=== PATIENT | female | born 1965 | race Caucasian/White ===

== ENCOUNTER 2021-11-17 14:04 | Inpatient (IN) | payer OTHER, MEDICAID ==
[~2021-11-17] VITALS: Ht 172.7 cm; Wt 86.2 kg
--- NOTE | 2021-11-17 21:45 | NUR ---
Direct admit Received report from JAKE Matos and prior, had received telephone report from SARAH Vargas at [place]. Patient is awake, no distress, on 2L NC and has chest tube to left side of chest. She was oriented to call light. Bed is locked in lowest position, bed alarm on.
[2021-11-17 21:55] VITALS: BP_SYST 104
--- NOTE | 2021-11-17 23:32 | NUR ---
PAGED PAGED DOCTOR BUCKNER FOR ORDERS
[2021-11-17] MEDS ORDERED: ACET325T53 PO (23:49)
[2021-11-17] MEDS ORDERED: DOCU-156 PO (23:49)
[2021-11-17] MEDS ORDERED: OLAN10TA3 PO (23:49)
[2021-11-17] MEDS ORDERED: ALBU0.63 IH (23:49)
[2021-11-17] MEDS ORDERED: NITSL SL (23:49)
[2021-11-17] MEDS ORDERED: METO25TA6 PO (23:49)
[2021-11-17] MEDS ORDERED: [UNRECOGNIZED DRUG - CODE] PO (23:49)
[2021-11-17] MEDS ORDERED: ANAS1TAB51 PO (23:49)
[2021-11-17] MEDS ORDERED: ONDA2VIA4 IV (23:49)
[2021-11-17] MEDS ORDERED: LOVI40 SQ (23:49)
[2021-11-17] MEDS ORDERED: [UNRECOGNIZED DRUG - CODE] PO (23:49)
[2021-11-17] MEDS ORDERED: LORA10TA68 PO (23:59)
--- NOTE | 2021-11-18 00:12 | NUR ---
Dr. Suzie Herrera Received direct admit orders
[2021-11-18 01:42] VITALS: BP_SYST 131
--- NOTE | 2021-11-18 02:19 | NUR ---
Rapid Covid swab / MRSA nares test done and will send to lab. Earlier MRSA nares sample was collected and sent to lab
[2021-11-18 02:21] LABS: ALBUMIN 2.6 g/dL (3.4-4.8); CALCIUM 9.1 mg/dL (8.4-11.0); CREATININE 0.45 mg/dL (0.55-1.30); POTASSIUM 3.9 mmol/L (3.5-5.1); TOTAL BILIRUBIN 0.3 mg/dL (0.0-1.0)
--- NOTE | 2021-11-18 02:54 | NUR ---
CONSULTATION PAGED REASON FOR CONSULTATION: HYDROPNEUMOTHORAX WAS CONSULT CALLED? Y PERSON WHO WAS NOTIFIED: Jakub CONSULTING PHYSICIAN: Dr. Davey REQUESTING PHYSICIAN: Dr. Herrera
--- NOTE | 2021-11-18 03:01 | NUR ---
PAGE PAGED VLAD WHO IS DAIRY FARM OPERATOR DR ANDERSON IS DAIRY FARM OPERATOR
[2021-11-18] MEDS ORDERED: ACETAMINOPHEN 325 MG TABLET PO PRN (03:15)
[2021-11-18] MEDS ORDERED: ONDANSETRON HCL 4 MG/2 ML VIAL IVP PRN (03:15)
[2021-11-18] MEDS ORDERED: LORATADINE 10 MG TABLET PO PRN (03:15)
[2021-11-18] MEDS ORDERED: NITROGLYCERIN 0.4 MG TAB.SUBL SL PRN (03:15)
--- NOTE | 2021-11-18 03:19 | NUR ---
CONSULTATION PAGED REASON FOR CONSULTATION: HYDROPNEUMOTHORAX WAS CONSULT CALLED? Y PERSON WHO WAS NOTIFIED: Iwona CONSULTING PHYSICIAN: Berhane Contreras REQUESTING PHYSICIAN: Dr. Herrera
--- NOTE | 2021-11-18 03:49 | NUR ---
Second Paged for Dr. Colorado s/jennifer Navarrete
--- NOTE | 2021-11-18 03:53 | NUR ---
Dr. Colorado, chest tube-water seal s/w Dr. Colorado and he said keep patient on water seal.
[2021-11-18] MEDS ORDERED: LACTOSE REDUCED FOOD PO SCH (08:00)
--- NOTE | 2021-11-18 08:00 | NUR ---
NOTES PATIENT AAOX 4. VITALS SIGNS STABLE. AND AFEBRILE. HAD IV ACCESS ON THE RT HAND #22. INFILTRATED. LUNGS BILATERALLY WITH RHONCHI. HAS OXYGEN OF 2LITER VIA NC. HAS DYSPNEA ON EXERTION. ABDOMEN SOFT AND DISTENDED BUT FIRM. HAS LEFT CHEST TUBE IN PLACED WITH WATER SEAL CONNECTED TO SUCTION. CALL LIGHTS WITHIN REACH. BED LOW POSITION, ALARMED AN LOCKED. WILL CONTINUE TO MONITOR.
[2021-11-18 08:11] LABS: BASOPHILS % (AUTO) 0.9 % (0.0-2.0); EOSINOPHILS # (AUTO) 0.3 K/uL (0.0-0.4); EOSINOPHILS % (AUTO) 5.3 % (0.0-4.0); HEMATOCRIT 36.9 % (36-48); LYMPHOCYTES # (AUTO) 0.7 K/uL (1.0-5.5); LYMPHOCYTES % (AUTO) 13.2 % (20.5-51.5); MEAN CORPUSCULAR HEMOGLOBIN 24 pg (27-31); MEAN CORPUSCULAR HGB CONC 33 % (32-36); MEAN CORPUSCULAR VOLUME 74 fL (79.0-98.0); MONOCYTES # (AUTO) 0.3 K/uL (0.0-1.0); MONOCYTES % (AUTO) 5.8 % (1.7-9.3); NEUTROPHILS # (AUTO) 3.9 K/uL (1.8-7.7); NEUTROPHILS % (AUTO) 74.8 % (40.0-70.0); PLATELET COUNT (AUTO) 364 K/uL (130-430); RED BLOOD CELL COUNT(AUTO) 5.02 MIL/uL (4.2-6.2); RED CELL DISTRIBUTION WIDTH 18.6 % (9.0-15.0); WHITE BLOOD COUNT (AUTO) 5.2 K/uL (4.8-10.8)
[2021-11-18 08:24] LABS: PROTHROMBIN TIME 10.6 SECS (9.5-12.5)
--- NOTE | 2021-11-18 09:00 | NUR ---
DR PASTRANA CALLED [facility] AND ORDERED FOR CT SCAN OF CHEST WITH CONTRAST.
[2021-11-18 09:08] VITALS: BP_SYST 125
[2021-11-18] MEDS ORDERED: IOHEXOL 350 mgI/mL, 150 ML INFUS..BTL IV ONE (09:51)
--- NOTE | 2021-11-18 10:00 | NUR ---
CONSENT SIGNED FOR CT CHEST WITH CONTRAST.
--- NOTE | 2021-11-18 10:15 | NUR ---
A NEW IV ACCESS PLACED ON RT AC #20. SALINE LOCK. PATENT/DRY.
--- NOTE | 2021-11-18 10:20 | NUR ---
HAD CT SCAN OF CHEST WITH CONTRAST DONE.
[2021-11-18] MEDS: METOPROLOL TARTRATE 25 MG TABLET PO SCH ×2 (10:50→20:56)
[2021-11-18] MEDS: DOCUSATE SODIUM 100 MG CAPSULE PO SCH (10:51)
--- NOTE | 2021-11-18 11:00 | NUR ---
DR BUCKNER CAME AND SEE THE PATIENT.
[2021-11-18] MEDS ORDERED: ALBUTEROL SULFATE 0.083% 2.5 MG/3 ML VIAL.NEB INH PRN (11:15)
--- NOTE | 2021-11-18 11:35 | NUR ---
DUE MEDS GIVEN AT THIS TIME.
[2021-11-18 12:56] VITALS: BP_SYST 130
--- NOTE | 2021-11-18 14:01 | NUR ---
Ac/Dc Rewinder TRUCKING SUPERVISOR Patricia responded to a request for social service support from Hvac Engineer Julio and perfume and toilet water maker Savanna, and a generated referral for possible homelessness. TRUCKING SUPERVISOR Patricia met with patient at bedside. Patient was awake, alert and orientedx4. TRUCKING SUPERVISOR completed introductions and patient was open to contact. Through out contact, patient was difficult hear and understand as she spoke softly and had to take a breath after every word she spoke. Current Need- Patient and TRUCKING SUPERVISOR discussed her possible discharge plan to be transferred to [place]. Patient stated she was interested in information for rail assembler placement as well. Social- Patient shared the sister reflected on the facesheet, Angella Anderson, is some what a support but not safe as a placement for her when she is ready for discharge home. According to patient, sister is "using" again, and had previously given her an "ultimatum" of get in a program or move out. Patient did not provide additional details of what "program" was being requested. Current condition/needs- Patient states she was in [place] prior to this hospitalization. Prior to that she was participating in housing program services from [facility]. She requested resources for housing for when she is discharged. Patient receives income from [employer] of about $1,3000 at this time. Patient expressed agreement with being transferred to [place] if that is the plan but wanted to resources for future housing needs. Plan- TRUCKING SUPERVISOR will provide patient with resources to address possible future housing needs. TRUCKING SUPERVISOR will continue to be available as needed.
[2021-11-18] MEDS: ANASTROZOLE 1 MG TABLET (ARIMIDEX) PO SCH (14:12)
[2021-11-18] MEDS: ENOXAPARIN SODIUM 40 MG/0.4 ML SYRINGE SQ SCH (14:29)
--- NOTE | 2021-11-18 16:54 | NUR ---
JOSE AND HYGIENE CARE DONE. MADE COMFORTABLE. ASSISTS ON ADLS.
[2021-11-18 17:26] VITALS: BP_SYST 93
--- NOTE | 2021-11-18 18:08 | NUR ---
EATING DINNER. RESTING NO DISTRESS NOR PAIN NOTED.
--- NOTE | 2021-11-18 18:38 | NUR ---
PLEASE FOLLOW UP WITH RENZO VALVERDE REGARDING MEDICATION RECONCILIATION. KATHIE SMITH INFORMED HIM REGARDING THIS MATTER. EARLIER WHEN HE CAME TODAY.
[2021-11-18] MEDS: OLANZapine 10 MG TABLET PO SCH (20:55)
[2021-11-18 22:59] VITALS: BP_SYST 112
[2021-11-19 00:43] VITALS: BP_SYST 110
[2021-11-19 07:51] VITALS: BP_SYST 116
--- NOTE | 2021-11-19 08:00 | NUR ---
NOTES RECEIVED REPORT FROM CHILANGO NURSE. PATIENT AAOX 4. STILL SLEEPY. VITALS SIGNS STABLE.AFEBRILE. HAS IV ACCESS ON THE RIGHT AC #20 SALINE LOCKED. PATENT/DRY. HAS LEFT CHEST TUBE CONNECTED TO WATER SEALED SUCTION. BUBBLING GOOD. OUTPUT NOT MUCH. CALL LIGHTS WITHIN REACH. BED LOW POSITION, ALARMED AND LOCKED. WILL CONTINUE
[2021-11-19 08:21] LABS: BASOPHILS # (AUTO) 0.1 K/uL (0.0-0.2); BASOPHILS % (AUTO) 2.1 % (0.0-2.0); EOSINOPHILS # (AUTO) 0.3 K/uL (0.0-0.4); HEMATOCRIT 37.3 % (36-48); LYMPHOCYTES # (AUTO) 0.7 K/uL (1.0-5.5); LYMPHOCYTES % (AUTO) 14.3 % (20.5-51.5); MEAN CORPUSCULAR HEMOGLOBIN 24 pg (27-31); MEAN CORPUSCULAR HGB CONC 32 % (32-36); MEAN CORPUSCULAR VOLUME 74 fL (79.0-98.0); MONOCYTES # (AUTO) 0.3 K/uL (0.0-1.0); MONOCYTES % (AUTO) 6.8 % (1.7-9.3); NEUTROPHILS # (AUTO) 3.3 K/uL (1.8-7.7); NEUTROPHILS % (AUTO) 70.8 % (40.0-70.0); PLATELET COUNT (AUTO) 352 K/uL (130-430); RED BLOOD CELL COUNT(AUTO) 5.07 MIL/uL (4.2-6.2); RED CELL DISTRIBUTION WIDTH 18.4 % (9.0-15.0); WHITE BLOOD COUNT (AUTO) 4.7 K/uL (4.8-10.8)
[2021-11-19 08:57] LABS: ALBUMIN 2.6 g/dL (3.4-4.8); CALCIUM 9.2 mg/dL (8.4-11.0); CREATININE 0.53 mg/dL (0.55-1.30); POTASSIUM 4.2 mmol/L (3.5-5.1); TOTAL BILIRUBIN 0.5 mg/dL (0.0-1.0)
[2021-11-19 08:59] LABS: PROTHROMBIN TIME 10.8 SECS (9.5-12.5)
--- NOTE | 2021-11-19 09:00 | NUR ---
DUE MEDS GIVEN AT THIS TIME. MADE COMFORTBLE.
[2021-11-19] MEDS: ANASTROZOLE 1 MG TABLET (ARIMIDEX) PO SCH (09:01)
[2021-11-19] MEDS: METOPROLOL TARTRATE 25 MG TABLET PO SCH ×2 (09:02→20:43)
[2021-11-19] MEDS: DOCUSATE SODIUM 100 MG CAPSULE PO SCH (09:02)
[2021-11-19] MEDS: ENOXAPARIN SODIUM 40 MG/0.4 ML SYRINGE SQ SCH (09:04)
--- NOTE | 2021-11-19 10:00 | NUR ---
AWAITING FOR DR PASTRANA TO COME TO EVALUATE THE PATIENT
[2021-11-19 12:00] VITALS: BP_SYST 114
--- NOTE | 2021-11-19 12:24 | NUR ---
SISTER OF THE PATIENT, IF U HAVE ANY QUESTION PLEASE CALL PERLITA JUDY PHONE NUMBER [phone]. RESPONSIBLE DEMOCRAT.
--- NOTE | 2021-11-19 13:15 | NUR ---
DR ZEINA JACKSON CAME AND EVALUATE THE PATIENT. FATUMAS REPORTS FROM [facility] OPERATIVE REPORT AND [facility] FOR CYTOLOGY REPORT STAT AND WAS SENT BY [place] TO BOTH HOSPITAL FOR REPORTS.
--- NOTE | 2021-11-19 13:17 | NUR ---
DR ZEINA JACKSON MADE AN ORDER FOR RIGHT SIDE PLACEMENT OF CHEST TUBE BY NEXT WEEK MONDAY AT 0900AM. PERLITA NEEDS TO BE PRESENT, PER REQUEST BY DR ZEINA JACKSON. TO INSTRUCT ON HOW TO REMOVED AND EMPTY WATER SEALED.
--- NOTE | 2021-11-19 13:31 | NUR ---
PER ORDER OF THORACIC MD DR MANUEL PASTRANA, FAXED THE STAT REQUEST FOR RECORDS FROM [facility], SPOKE TO DELMAR ([phone]) AND ALSO TO [facility], SPOKE TO SHILPA ([phone]).
--- NOTE | 2021-11-19 13:40 | NUR ---
CM: Discussed POC with Patient, dr. Mcnulty and Angella, sister at bedside ; per md , planning to insert another pleurex to the right chest next week on at 9 am ( see Amy RN's note ). This pending his review the documentation from [facility] and [facility]. Amy is to request the documents and fax to dr Mcnulty's office farzaneh. >> I spoke with Angella, conservator, said the pt is contesting her conservatorship and is pending court day for review. Angella stated she is a RN working at a usp she is will to take the pt home if appropriate otherwise the pt will be transferred back to [facility]. CM notified DANIELLA Gomez to investigate more about the conservatorship status with Angella. >> Per patient, she does not want to go home with her sister but agrees with transfer to [facility]. The discharge placement is to reeval per dr. Mcnulty.
--- NOTE | 2021-11-19 13:54 | NUR ---
ULTRASOUND OF LEFT CHEST DONE. FOR PARACENTESIS IN AM Addendum: 11/19/21 at 1511 by Amy Nevarez RN NO PARACENTESIS ORDER PER CHECKED ON THE COMPUTER.
--- NOTE | 2021-11-19 14:32 | NUR ---
Broadcast Field Supervisor In an effort to obtain clarification of conservatorship, DANIELLA Gomez met with patient's sister Angella Anderson while she was at bedside. DANIELLA completed introductions, provided Angella a business card, and she was open to engagement. Angella shared the following; -Patient has been under conservatorship since 2017 with Angella being appointed the conservator. - According to Angella, the patient has contested conservatorship, but at this time there has not been a change in conservator or removal of conservatorship - Patient has a history of inpatient mental health treatment at [facility], with one of these stays being 30 days - Patient has previously been diagnosed with Schizoaffective Disorder - Receives monthly injection of Invega Sustenna, with last injection being 11/15/2021 for above mental health disorder Plan -DANIELLA requested patient's sister Angella bring in a paper copy displaying conservatorship so a copy can be placed in patient's chart DANIELLA Gomez provided an update on mental health history to exchange administrator and requested a psych consult. DANIELLA will continue to be available as needed.
--- NOTE | 2021-11-19 15:05 | NUR ---
SPOKE TO FLOATLIGHT LOADING SUPERVISOR PHAM OF DR ZEINA JACKSON, THAT SHE RECEIVED THE OPERATIVE REPORT AND PATHOLOGY FROM BOTH [facility] AND [facility] AND SAID WILL GAVE IT TO THE DOCTOR AT THIS TIME.
--- NOTE | 2021-11-19 15:07 | NUR ---
CALLED [facility] AND SPOKE TO MARILIA SMITH REGARDING THE BRONCHOSCOPY PROCEDURE ON MONDAY AT 0900AM.11-25-2021 CONSENT NEEDS TO BE SIGNED BY Monday11-24-2021 DAY BEFORE THE PROCEDURE. PLEASE FOLLOW UP
[2021-11-19 16:00] VITALS: BP_SYST 115
--- NOTE | 2021-11-19 16:23 | NUR ---
CONSULTATION PAGED REASON FOR CONSULTATION:SCHIZO AFFECTIVE DISORDERS WAS CONSULT CALLED?Y PERSON WHO WAS NOTIFIED:RACH CONSULTING PHYSICIAN:CHLOE GURROLA LADIES' LOCKER ROOM ATTENDANT SPECIALTY:PSYCHE LADIES' LOCKER ROOM ATTENDANT PHONE NUMBER:[phone] REQUESTING PHYSICIAN: RENZO TOLENTINO SITE TO LOG INTO FOR TELE PSYCHE [facility].DOXY.AR/CONSULT
--- NOTE | 2021-11-19 17:32 | NUR ---
RESTING AT THIS TIME. NO PAIN NOR DISTRESS NOTED. WILL CONTINUE TO MONITOR
--- NOTE | 2021-11-19 17:36 | NUR ---
SISTER PERLITA REQUESTING TO DR ALANNA MULLER REGARDING THE ARIMIDEX TABLET FOR CANCER, INSTEAD ONCOLOGY DOCTOR WANTS TO HAVE VERZENIO (ABEMACICICLIB) TABLET. KATHIE SMITH CALLED PHARMACY, BUT NOT AVAILABLE, SPOKE TO ANN MARIE SAID JUST BRING THE MEDICATION. FOLLOW UP WITH DR MONDRAGON AND RECONCILED ALL MEDICATION PLEASE
--- NOTE | 2021-11-19 17:40 | NUR ---
VERZENIO 50 MG TABLET BID ORDERED BY THE OUTSIDE ONCOLOGIST
[2021-11-19] MEDS: OLANZapine 10 MG TABLET PO SCH (20:43)
[2021-11-19 21:32] VITALS: BP_SYST 106
[2021-11-20 00:34] VITALS: BP_SYST 111
--- NOTE | 2021-11-20 06:09 | NUR ---
pt asleep stable and easily to arouse at this time. chest tube still in place and intact. no c/o pain or distress at this time. 30ml output from chest tube.
[2021-11-20 09:13] VITALS: BP_SYST 111
--- NOTE | 2021-11-20 09:13 | NUR ---
INITIAL ROUNDS Received pt AAOx4, no s/s resp distress, no c/o pain or discomfort. Pt with chest tube in place to left lateral chest wall to suction. HOB elevated for aspiration precautions and ease in breathing. Plan of care for the day reviewed with pt-pt verbalized her understanding. Pain management, disease process, skin and safety discussed-teach back done. Side rails up x3, bed alarm on, call light within reach.
[2021-11-20] MEDS: DOCUSATE SODIUM 100 MG CAPSULE PO SCH (10:09)
[2021-11-20] MEDS: ANASTROZOLE 1 MG TABLET (ARIMIDEX) PO SCH (10:10)
[2021-11-20] MEDS: METOPROLOL TARTRATE 25 MG TABLET PO SCH ×2 (10:10→22:19)
[2021-11-20] MEDS: ENOXAPARIN SODIUM 40 MG/0.4 ML SYRINGE SQ SCH (10:12)
[2021-11-20 13:14] VITALS: BP_SYST 120
[2021-11-20 16:14] VITALS: BP_SYST 119
[2021-11-20] MEDS ORDERED: HYDROCORTISONE 1%, 28.35 GM TOPICAL CREAM TP PRN (17:30)
[2021-11-20] MEDS ORDERED: COMMUNICATION ORDER XX ONE (17:30)
--- NOTE | 2021-11-20 18:29 | NUR ---
CLOSING NOTE Pt sitting up in bed eating her dinner Pt c/o itchiness to left lateral chest, area cleansed with mild soap and water, no drainage noted to site. Called Dr. Herrera got an order for Hydrocortisone cream for the itchiness at site-waiting for pharmacy to bring. No s/s resp distress, no c/o pain or discomfort. Chest tube to left lateral chest in place. Skin and safety precautions remain in place. Call light within reach.
[2021-11-20 20:24] VITALS: BP_SYST 133
--- NOTE | 2021-11-20 20:50 | NUR ---
RECEIVED PT WITH CHEST TUBE VIGOROUSLY BUBBLING. HR 114, RR 22, NO DISTRESS NOTED. REINFORCED TAPE, CHECKED FOR LEAK IN TUBING. THE TITLE ATTORNEY PAGED DR DIAZ. 2049: DR TORRES CALLED BACK I INFORMED HIM ABOUT THE BUBBLING, HE STATED IT IS SUPPOSE TO BE DOING THAT AND TO DECREASE THE WALL SUCTION TO 40. Addendum: 11/21/21 at 0634 by Sixty customs and immigration officer 0630: ASSISTED PT WITH THE BED HASTINGS. CONTINUES TO BE ON O2 2L VIA NC, O2 SAT 95%. NO NEW DRAINAGE FROM CHEST TUBE, DRSG TO LT FLANK CDI.
[2021-11-20] MEDS: OLANZapine 10 MG TABLET PO SCH (22:18)
[2021-11-20] MEDS: PATIENT'S OWN TABLET PO SCH (22:25)
[2021-11-21 01:00] VITALS: BP_SYST 114
[2021-11-21 02:09] VITALS: BP_SYST 102
[2021-11-21 08:16] VITALS: BP_SYST 116
--- NOTE | 2021-11-21 08:16 | NUR ---
INITIAL ROUNDS Received pt AAOx4, no s/s resp distress, no c/o pain or discomfort. Pt with chest tube in place to left lateral chest wall to suction, load bubbling noted, per dock pumper nurse-she called pulmonary doctor last night and he was not concerned, pt not in resp distress. HOB elevated for aspiration precautions and ease in breathing. Plan of care for the day reviewed with pt-pt verbalized her understanding. Pain management, disease process, skin and safety discussed-teach back done. Side rails up x3, bed alarm on, call light within reach.
[2021-11-21] MEDS: PATIENT'S OWN TABLET PO SCH ×2 (10:02→21:00)
[2021-11-21] MEDS: DOCUSATE SODIUM 100 MG CAPSULE PO SCH (10:03)
[2021-11-21] MEDS: METOPROLOL TARTRATE 25 MG TABLET PO SCH ×2 (10:03→23:05)
[2021-11-21] MEDS: ENOXAPARIN SODIUM 40 MG/0.4 ML SYRINGE SQ SCH (10:07)
[2021-11-21 18:42] VITALS: BP_SYST 134
--- NOTE | 2021-11-21 19:06 | NUR ---
CLOSING NOTE Pt sitting up in bed eating her dinner. No s/s resp distress, no c/o pain or discomfort. Chest tube to left lateral chest in place to suction. Skin and safety precautions remain in place. Call light within reach.
[2021-11-21 20:36] VITALS: BP_SYST 107
[2021-11-21] MEDS: OLANZapine 10 MG TABLET PO SCH (23:04)
[2021-11-22 02:17] VITALS: BP_SYST 110
[2021-11-22 08:00] VITALS: BP_SYST 118
[2021-11-22] MEDS: PATIENT'S OWN TABLET PO SCH ×2 (09:00→22:14)
[2021-11-22] MEDS: METOPROLOL TARTRATE 25 MG TABLET PO SCH ×2 (09:00→22:14)
[2021-11-22] MEDS: DOCUSATE SODIUM 100 MG CAPSULE PO SCH (09:01)
[2021-11-22] MEDS: ENOXAPARIN SODIUM 40 MG/0.4 ML SYRINGE SQ SCH (09:05)
--- NOTE | 2021-11-22 11:12 | NUR ---
Discharge Planning:: DCP faxed pt Raquel Braswell#[phone] P#[phone] DCP to follow up Addendum: 11/22/21 at 1633 by Nicki CLAUDIO DCP followed up Raquel Braswell#[phone] P#[phone] did receive referral.
[2021-11-22 12:41] VITALS: BP_SYST 125
[2021-11-22 18:06] VITALS: BP_SYST 121
[2021-11-22 20:30] VITALS: BP_SYST 126
[2021-11-22] MEDS: OLANZapine 10 MG TABLET PO SCH (22:14)
[2021-11-23 00:22] VITALS: BP_SYST 99
[2021-11-23 08:00] VITALS: BP_SYST 128
[2021-11-23] MEDS: METOPROLOL TARTRATE 25 MG TABLET PO SCH ×2 (09:57→21:59)
[2021-11-23] MEDS: DOCUSATE SODIUM 100 MG CAPSULE PO SCH (09:57)
[2021-11-23] MEDS: PATIENT'S OWN TABLET PO SCH ×2 (09:58→22:01)
[2021-11-23] MEDS: ENOXAPARIN SODIUM 40 MG/0.4 ML SYRINGE SQ SCH (09:59)
[2021-11-23 12:00] VITALS: BP_SYST 118
[2021-11-23 16:00] VITALS: BP_SYST 113
--- NOTE | 2021-11-23 19:45 | NUR ---
Opening note Received patient awake, resting in bed, no distress. She is on 4L NC with saturation of 96%. She has chest tube place to left side, on water seal with bubbling noted. Presently denies pain. IV to RAC is SL. Bed is locked in lowest position, side rails up and bed alarm on. Instructed on use of call light and she verbalized understanding.
[2021-11-23 20:00] VITALS: BP_SYST 128
[2021-11-23] MEDS: OLANZapine 10 MG TABLET PO SCH (21:59)
[2021-11-24 02:09] VITALS: BP_SYST 114
[2021-11-24] MEDS: METOPROLOL TARTRATE 25 MG TABLET PO SCH ×2 (09:00→20:43)
[2021-11-24] MEDS: DOCUSATE SODIUM 100 MG CAPSULE PO SCH (09:00)
[2021-11-24] MEDS: ENOXAPARIN SODIUM 40 MG/0.4 ML SYRINGE SQ SCH (09:00)
[2021-11-24] MEDS: PATIENT'S OWN TABLET PO SCH ×2 (09:00→20:45)
[2021-11-24 11:02] VITALS: BP_SYST 117
[2021-11-24 15:54] VITALS: BP_SYST 124
--- NOTE | 2021-11-24 16:13 | NUR ---
CM: Received transfer order request to [facility] for Pleurex Catheter placement , I faxed the clinicals to housekeeper child care , Asya fax # [phone], Tel # [phone]. Per Asya, she will call back after review the document. CM embroidery supervisor on duty to call Asya after 430 pm to f/u the acceptance decision. . Should the pt is accepted and has bed to transfer tonight, May call any ambulance who accept Medicare insurance. DC package placed in nursing unit [facility]. -- RN Deedee made aware
[2021-11-24 19:00] VITALS: BP_SYST 136
--- NOTE | 2021-11-24 19:15 | NUR ---
change of shift.pt.presents quiescent affect.pt.presents order transfer to [facility] in am:11/25/21. i was apprised that the pt.was ordered to receive prbc's transfusion 1-unit.but order to be d/c.per day shift.glen;rn. pt.presents chest tube location lt.axillae connected to low suction.i have noted drainage level:1450ml.pt.presents iv access location rt.antecubital.iv lock.pt.presents o2 therapy via nasal cannulae rate:4l/mi:o2-sat%=96%.call light/telephone w/in access of the pt.
[2021-11-24 20:00] VITALS: BP_SYST 136
--- NOTE | 2021-11-24 20:00 | NUR ---
pt.assessed.v/s assessed value wnl.chest tube intact.o2-sat%=96%.no c/o pain,nausea.i have apprised the pt.that snacks/beverages are available w/in the shift.pt.requested coffee provided.pt.repositioned.call light/telephone w/in access of the pt.
[2021-11-24] MEDS: OLANZapine 10 MG TABLET PO SCH (20:44)
--- NOTE | 2021-11-24 21:00 | NUR ---
2100p medications administered.pt.capable to ingest the po medications w/out difficulty.no c/o pain,nausea.call light/telephone w/in access of the pt.
--- NOTE | 2021-11-24 22:00 | NUR ---
pt.assessed.pt.presents quiescent affect calm,resting.chest tube intact.02-sat%=96%.no c/o pain,nausea.pt.requested blanket provided;warmed.pt.assessed for cleanliness.pt.repositioned.call light/telephone placed w/in access of the pt.
[2021-11-25] VITALS (7 sets, daily range): BP systolic 111–143
--- NOTE | 2021-11-25 | NUR ---
pt.assessed.v/s assessed values wnl.no c/o pain,nausea..chest tube assessed in place.no c/o pain,nausea.pt.requested coffee provided.pt.repositioned.call light/telephone w/in access of the pt.
--- NOTE | 2021-11-25 02:00 | NUR ---
pt.assessed.pt.presents quiescent affect calm,somnolent.per flacc pain mgx pt.absent facial grimaces/body posturing. chest tube intact;patent.pt.assessed for cleanliness.pt.repositioned.call light/telephone placed w/in access of the pt.
--- NOTE | 2021-11-25 04:00 | NUR ---
pt.assessed.pt.presents quiescent calm,somnolent.per flacc pain mgx pt.absent facial/grimaces/body posturing.pt.assessed for cleanliness.pt.repositioned.call light/telephone placed w/in access of the pt.
[2021-11-25 06:24] LABS: CALCIUM 8.3 mg/dL (8.4-11.0); CREATININE 0.56 mg/dL (0.55-1.30); POTASSIUM 3.9 mmol/L (3.5-5.1)
--- NOTE | 2021-11-25 06:30 | NUR ---
pt.assessed.pt.presents quiescent affect calm,resting.no c/o pain,nausea.no requests posited@this hour.chest tube intact; patent.pt.repositioned call light/telephone placed w/in access of the pt.
[2021-11-25 06:33] LABS: BASOPHILS % (AUTO) 0.8 % (0.0-2.0); EOSINOPHILS # (AUTO) 0.2 K/uL (0.0-0.4); HEMATOCRIT 38.4 % (36-48); HEMOGLOBIN 12.3 g/dL (12.0-16.0); LYMPHOCYTES # (AUTO) 0.7 K/uL (1.0-5.5); MEAN CORPUSCULAR HEMOGLOBIN 24 pg (27-31); MEAN CORPUSCULAR HGB CONC 32 % (32-36); MEAN CORPUSCULAR VOLUME 74 fL (79.0-98.0); MONOCYTES # (AUTO) 0.3 K/uL (0.0-1.0); MONOCYTES % (AUTO) 5.9 % (1.7-9.3); NEUTROPHILS # (AUTO) 3.3 K/uL (1.8-7.7); NEUTROPHILS % (AUTO) 72.3 % (40.0-70.0); PLATELET COUNT (AUTO) 376 K/uL (130-430); RED BLOOD CELL COUNT(AUTO) 5.22 MIL/uL (4.2-6.2); RED CELL DISTRIBUTION WIDTH 18.5 % (9.0-15.0); WHITE BLOOD COUNT (AUTO) 4.5 K/uL (4.8-10.8)
[2021-11-25] MEDS: METOPROLOL TARTRATE 25 MG TABLET PO SCH (09:00)
[2021-11-25] MEDS: PATIENT'S OWN TABLET PO SCH (09:19)
[2021-11-25] MEDS: DOCUSATE SODIUM 100 MG CAPSULE PO SCH (09:19)
[2021-11-25] MEDS: ENOXAPARIN SODIUM 40 MG/0.4 ML SYRINGE SQ SCH (09:33)
--- NOTE | 2021-11-25 09:46 | NUR ---
CM:[facility], mey Still sup assigned pt to room 9 B Tele unit, RN to report to ER nurse tel# [phone] x [phone] for registration/admission. Address: [address] [place] [address]. I gave initial clinical report to the house sup tel # [phone] Mnculty made aware to the transfer time at 1230-1pm. Angella,pt's sister/ conservator made aware and agreed with the transfer.--BUDDY Mark made aware.
--- NOTE | 2021-11-25 10:53 | NUR ---
Discharge Planning: Transport arranged with [facility] [phone] ALS 12:00pm-12:30pm to [facility] Rm 9 B Tele unit, Address: [address] [place] [id number]. Addendum: 11/25/21 at 1123 by Julio Foote RN Berkley Ramirez put the ride on Will Call. Per NARGIS Robert , he got the call from NARGIS Agudelo at [facility] that the admission is on hold he need md to md report and checking with the normal admission process. I attempted to call [facility] to verify the admission status, but no answer. Dr Pastrana made aware. Addendum: 11/25/21 at 1207 by Julio Foote RN >> Received call back from dr. PASTRANA and Munira, business performance specialist at [facility] cell # [phone] and a new house calls nurse practitioner /Glenn confirmed approval for admission and okay to transfer pt to room 9B , RN to call hospital main line # [phone] x unit 1 and to give report to charge nurse. [facility] ambulance recalled , gave new apple picking supervisor time at 6 pm. Glenn [facility] aware. -- SARAH foster. Addendum: 11/25/21 at 1622 by Linda Churchill RN Received call from ambulance company, since CT not clamped would need transport coordinator & will be able to apple picking supervisor pt at 730pm.
--- NOTE | 2021-11-25 15:49 | NUR ---
Dietitian Recommendations Regular diet, Ensure Enlive BID. Supplement provides an additional 700 kcals/day and 40 g protein/day. LP, RD Please refer to Nutrition Assessment for details. Signed: 11/25/21 at 1549 by Michaela ROJAS <Co-Signature Required> Co-Signed: 11/25/21 at [address] Addendum: 11/25/21 at 1549 by Michaela ROJAS Amended: Links added.
--- NOTE | 2021-11-25 19:35 | NUR ---
PT IS BEING PICKED UP BY AMBULANCE, CHEST TUBE MODULATOR IS TURNED OFF. NO BUBBLING FROM THE CHEST TUBE AT THIS TIME. CHEST TUBE IS ATTACHED SECURELY TO THE ABDOMEN, PT'S VITALS ARE STABLE. PT DENIES PAIN. PT IS STABLE AT THIS TIME. REPORT GIVEN TO MISTY AT [facility]. TRANSFER IS EXPECTED AND EN ROUTE.
== END 2021-11-25 19:35 | disposition short-term general hospital (02) | DRG 189 ==
LOC: UNDOADMIN 21:30 → SMU 21:30 → STU 11-18 01:46
PROVIDERS: ADMIT Family Medicine; ATTEND Family Medicine
DX: J96.01 Acute respiratory failure with hypoxia (principal); J94.2 Hemothorax; C79.9 Secondary malignant neoplasm of unspecified site; J94.8 Other specified pleural conditions; J93.9 Pneumothorax, unspecified; J91.0 Malignant pleural effusion; I10 Essential (primary) hypertension; C50.919 Malignant neoplasm of unspecified site of unspecified female breast; I25.10 Atherosclerotic heart disease of native coronary artery without angina pectoris; E11.9 Type 2 diabetes mellitus without complications; Z20.822 Contact with and (suspected) exposure to COVID-19; Z85.3 Personal history of malignant neoplasm of breast; Z90.12 Acquired absence of left breast and nipple
CPT/HCPCS: 36415; 71045; 71275; 76376; 76604; 80048; 80053; 85025; 85610-TC; 85730-TC; 86886; 86900; 86901; 86920; 87081; 93005; G0378; J1650; Q9967